=== PATIENT | male | born 1980 | race Caucasian/White ===

== ENCOUNTER 2017-01-06 08:32 | Emergency (ER) | payer OTHER ==
[~2017-01-06] VITALS: Ht 185.4 cm; Wt 98.0 kg
[2017-01-06 08:34] VITALS: BP 131/88
== END 2017-01-06 09:54 | disposition home or self-care (01) ==
LOC: ED 09:40
DX: S43.421A Sprain of right rotator cuff capsule, initial encounter (principal); X50.1XXA Overexertion from prolonged static or awkward postures, initial encounter; Y93.89 Activity, other specified; Y92.89 Other specified places as the place of occurrence of the external cause; Y99.9 Unspecified external cause status
CPT/HCPCS: 99284

== ENCOUNTER 2017-09-20 09:19 | Emergency (ER) | payer OTHER ==
[~2017-09-20] VITALS: Ht 188 cm; Wt 104.0 kg
[2017-09-20 09:21] VITALS: BP 165/109
[2017-09-20] MEDS ORDERED: LIDOCAINE-MPF 2% ,5ML ONE (09:28)
[2017-09-20] MEDS ORDERED: DIPH,PERTUSS(ACELL),TET VAC/PF 0.5 ML IM-VACC ONE ×2 (09:53→10:30)
[2017-09-20] MEDS ORDERED: BACITRACIN ZINC OINT 500U/GM, 0.9 GM ONE (10:11)
== END 2017-09-20 10:32 | disposition home or self-care (01) ==
LOC: ED 10:12
DX: S61.210A Laceration without foreign body of right index finger without damage to nail, initial encounter (principal); X58.XXXA Exposure to other specified factors, initial encounter; Y93.89 Activity, other specified; Y92.89 Other specified places as the place of occurrence of the external cause; Y99.8 Other external cause status
CPT/HCPCS: 12001; 90471; 90715; 99283

== ENCOUNTER 2019-02-12 17:54 | Emergency (ER) | payer OTHER ==
[~2019-02-12] VITALS: Ht 188 cm; Wt 110.0 kg
[2019-02-12 18:11] VITALS: BP 157/97
[2019-02-12] MEDS ORDERED: ACETAMINOPHEN 500 MG TABLET PO ONE (18:30)
[2019-02-12] MEDS ORDERED: ACETAMINOPHEN 500 MG TABLET ONE (18:37)
== END 2019-02-12 20:31 | disposition home or self-care (01) ==
LOC: ED 20:22
DX: S01.81XA Laceration without foreign body of other part of head, initial encounter (principal); S70.01XA Contusion of right hip, initial encounter; S40.022A Contusion of left upper arm, initial encounter; E78.00 Pure hypercholesterolemia, unspecified; V49.49XA Driver injured in collision with other motor vehicles in traffic accident, initial encounter; Y93.89 Activity, other specified; Y92.410 Unspecified street and highway as the place of occurrence of the external cause; Y99.8 Other external cause status
CPT/HCPCS: 70450; 72125; 99284

== ENCOUNTER 2019-08-30 15:21 | Emergency (ER) | payer OTHER ==
[~2019-08-30] VITALS: Ht 188 cm; Wt 110.0 kg
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
--- NOTE | 2019-08-30 16:43 | NUR ---
PT'S C SPINE CLEARED BY TIFFANIE MARSHALL, JOANNA REMOVED PT'S C COLLAR. PT OK FOR D/C. PT WITH STEADY GAIT UPON D/C, VSS. PT HAS ALL D/C PAPERWORK, VERBALIZED UNDERSTANDING OF D/C PAPERWORK.
[2019-08-30 16:44] VITALS: BP 128/79
== END 2019-08-30 16:46 | disposition home or self-care (01) ==
LOC: ED 16:43
DX: Z04.1 Encounter for examination and observation following transport accident (principal)
CPT/HCPCS: 99281

== ENCOUNTER 2020-03-17 01:39 | Emergency (ER) | payer OTHER ==
[~2020-03-17] VITALS: Ht 188 cm; Wt 109.0 kg
[2020-03-17] MEDS ORDERED: HYDROmorphone 1 MG/ML, 1ML INJ ONE (01:51)
[2020-03-17] MEDS ORDERED: ONDANSETRON 2MG/ML, 2ML ONE (01:51)
[2020-03-17] MEDS ORDERED: HYDROmorphone 2 MG/ML, 1ML IVPush PRN (02:00)
[2020-03-17] MEDS ORDERED: SODIUM CHLORIDE 0.9% 1,000ML IV ONE (02:00)
[2020-03-17] MEDS ORDERED: SODIUM CHLORIDE FLUSH 10ML SYR IVF ONE (02:00)
[2020-03-17] MEDS ORDERED: ONDANSETRON 2MG/ML, 2ML IVPush ONE (02:00)
[2020-03-17 02:05] LABS: BASOPHILS % (AUTO) 0 % (0-1); EOSINOPHILS % (AUTO) 1 % (1-7); LYMPHOCYTES % (AUTO) 43 % (22-44); MD NO; MEAN CORPUSCULAR HEMOGLOBIN 31.9 pg (27.5-34.5); MEAN CORPUSCULAR HGB CONC 34.9 g/dL (33.2-36.2); MEAN PLATELET VOLUME 8.8 fL (7.4-10.4); MONOCYTES % (AUTO) 10 % (2-9); NEUTROPHILS % (AUTO) 46 % (42-75); PLATELET COUNT 156 x10^3/uL (130-400); RED BLOOD COUNT 5.04 x10^6/uL (4.38-5.82)
[2020-03-17 02:15] LABS: ALANINE AMINOTRANSFERASE 67 U/L (12-78); ALBUMIN 4.2 g/dL (3.4-5.0); ANION GAP 10 mmol/L (5-15); CALCIUM 9.1 mg/dL (8.5-10.1); CHLORIDE 109 mmol/L (98-107); CREATININE 1.25 mg/dL (0.7-1.3)
[2020-03-17 02:17] LABS: ALKALINE PHOSPHATASE 85 U/L (45-117); BILIRUBIN,TOTAL 0.7 mg/dL (0.2-1.0); TOTAL PROTEIN 8.1 g/dL (6.4-8.2)
--- NOTE | 2020-03-17 02:25 | NUR ---
PT TO CT
[2020-03-17] MEDS ORDERED: KETOROLAC 30 MG/1 ML ONE (02:48)
[2020-03-17 02:56] LABS: MICROSCOPIC AUTO
[2020-03-17] MEDS ORDERED: KETOROLAC 30 MG/1 ML IVPush ONE (03:00)
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
[2020-03-17 03:46] VITALS: BP 133/84
--- NOTE | 2020-03-17 03:46 | NUR ---
Patient given discharge instructions and they have confirmed that they understand the instructions. Patient ambulatory with steady gait.
== END 2020-03-17 03:48 | disposition home or self-care (01) ==
LOC: ED 03:15
DX: N20.1 Calculus of ureter (principal); R19.7 Diarrhea, unspecified; R11.2 Nausea with vomiting, unspecified; M54.9 Dorsalgia, unspecified; Z79.899 Other long term (current) drug therapy
CPT/HCPCS: 36415; 74176; 80053; 81001; 83690; 85025; 87086; 96361; 96374; 96375; 99284; J1170; J1885; J2405; J7030

== ENCOUNTER → 2020-09-09 | Outpatient (CLI) | payer OTHER | END | disposition home or self-care (01) | LOC: RAD 12:29 | PROVIDERS: ATTEND Physician Assistant Surgical | DX: N20.0 Calculus of kidney (principal) | CPT/HCPCS: 74018 ==